=== PATIENT | female | born 1970 | race Caucasian/White ===

== ENCOUNTER 2016-07-07 17:05 | Emergency (ER) ==
[2016-07-07 17:13] VITALS: BMI 21.1
[2016-07-07 17:42] LABS: BILIRUBIN,URINE Negative (NEGATIVE); KETONES,URINE Negative (NEGATIVE); LEUKOCYTE ESTERASE ,URINE 2+ (NEGATIVE); NITRITE,URINE Negative (NEGATIVE); PROTEIN,URINE Negative (NEGATIVE); URINE, BLOOD Trace-intact (NEGATIVE)
[2016-07-07 17:45] LABS: ADD URINE MICROSCOPIC YES
[2016-07-07 17:46] LABS: BACTERIA,URINE 1+ (NOT PRESENT); URINE PREGNANCY INTERNAL QC INTERNAL QC VALID
--- NOTE | 2016-07-07 17:58 | ED.PDOC ---
General ED Provider: Dr. COLLEEN ESPOSITO Chief Complaint: Urinary Problem Stated Complaint: Patient is a 46 year old who states she has lost her voice and has a sore thorat. Time Seen by Physician: 17:50 Mode of Arrival: Walk-In Information Source: Patient Exam Limitations: No limitations Nursing and Triage Documentation Reviewed and Agree: Yes EENT Complaint Exam - Throat Complaint/Exam Symptoms Are: Still present Timimg: Constant Associated Signs and Symptoms: Reports: Fever, Dysphagia, Hoarseness. Denies: Drooling, Foreign body sensation, Chills, Cough, Wheezing, Sinus discomfort, Nasal congestion, Difficulty breathing, Lethargy, Irritability, Decreased activity, Vomiting, Diarrhea, Decreased hearing, Ear drainage Uvula Midline: No Veda-tonsillar Fluctuence: No Scarlatinaform Rash Present: No Stridor Present: No Sinus Tenderness Present: No Tonsillar Hypertrophy Present: Yes Tonsillar Exudate Present: No Veda-tonsillar Swelling Present: No Adenopathy Present: Yes Splenomegaly Present: No Past Medical History - Past Medical History Previously Healthy: Yes Endocrine: Reports: None Cardiovascular: Reports: None Respiratory: Reports: None Hematological: Reports: None Gastrointestinal: Reports: None Genitourinary: Reports: None Neuro/Psych: Reports: None Musculoskeletal: Reports: Arthritis Cancer: Reports: None Last Menstrual Period: january Other Pertinent Past Medical History: Lupus, RA - Surgical History General Surgical History: Reports: Appendectomy, Cholecystectomy - Family History Family History: Reports: Unknown - Social History Smoking Status: Current every day smoker, Heavy tobacco smoker Hx Substance Use: No Alcohol Screening: None Course - Course Orders, Labs, Meds: Lab Review 07/07/16 17:30 Urine Color Yellow Urine Clarity Clear Urine pH 6.0 Ur Specific [place] 1.025 Urine Protein Negative Urine Glucose (UA) Negative Urine Ketones Negative Urine Blood Trace-intact Urine Nitrite Negative Urine Bilirubin Negative Urine Urobilinogen 1.0 Ur Leukocyte Esterase 2+ Urine Microscopic RBC 2-5 Urine Microscopic WBC 10-20 Ur Squamous Epith Cells 2-5 Urine Bacteria 1+ Urine Mucus 1+ Urine Test Negative Orders Category Date Time Status URINALYSIS C & S IF INDICATED Stat LAB 07/07/16 17:30 Completed URINE CULTURE Routine LAB 07/07/16 17:30 Received URINE Stat LAB 07/07/16 17:30 Completed Vital Signs: Temp Pulse Resp BP Pulse Ox 07/07/16 17:05 98.4 F 104 H 20 137/74 96 Departure - Departure Allergies/Adverse Reactions: Allergies codeine Allergy (Severe, Verified 07/07/16 17:12) nausea varenicline tartrate [From Chantix] Allergy (Severe, Verified 07/07/16 17:12) nightmares Pt to notify drugstore Home Medications: Ambulatory Orders 1 [No Reported Medications] 07/07/16
[2016-07-07] MEDS ORDERED: ZITHROMAX PO STA (18:04)
[2016-07-07] MEDS ORDERED: LIDOCAINE 1 % AMP 5 ML (SUTURES) IM STA (18:04)
[2016-07-07] MEDS ORDERED: FLAGYL PO STA (18:04)
[2016-07-07] MEDS ORDERED: ROCEPHIN IM STA (18:04)
--- NOTE | 2016-07-07 18:05 | ED.PDOC ---
General ED Provider: Dr. COLLEEN ESPOSITO Chief Complaint: Urinary Problem Stated Complaint: Patient is a 46 year old who states she has had discharge for one month while she was in shelter. She was not treated. She also complains of Burining on urination. last sexual encounter was one month ago. Time Seen by Physician: 17:45 Mode of Arrival: Walk-In Information Source: Patient Exam Limitations: No limitations Nursing and Triage Documentation Reviewed and Agree: Yes Complaint Exam - UTI Female Complaint/Exam Patient Complains of: Reports: Painful urination Onset/Duration: 1 month Symptoms Are: Still present Timing: Constant Initial Severity: Moderate Current Severity: Severe Location of Pain: Reports: Suprapubic Associated Signs and Symptoms: Reports: Vaginal discharge. Denies: Fever, Chills Patient Rh Status: Unknown Related History: Reports: Similar episode CVA Tenderness: No Suprapubic Tenderness: No Differential Diagnoses: Bladder Dysfunction, Pyelonephritis, STD Review of Systems - Review Of Systems Constitutional: Reports: No symptoms Eyes: Reports: No symptoms Ears, Nose, Mouth, Throat: Reports: No symptoms Respiratory: Reports: No symptoms Cardiac: Reports: No symptoms GI: Reports: No symptoms : Reports: Dysuria, Discharge Musculoskeletal: Reports: No symptoms Skin: Reports: No symptoms Neurological: Reports: Anxiety Endocrine: Reports: No symptoms Hematologic/Lymphatic: Reports: No symptoms All Other Systems: Reviewed and Negative Past Medical History - Past Medical History Previously Healthy: Yes Endocrine: Reports: None Cardiovascular: Reports: None Respiratory: Reports: None Hematological: Reports: None Gastrointestinal: Reports: None Genitourinary: Reports: None Neuro/Psych: Reports: None Musculoskeletal: Reports: Arthritis Cancer: Reports: None Last Menstrual Period: january Other Pertinent Past Medical History: Lupus, RA - Surgical History General Surgical History: Reports: Appendectomy, Cholecystectomy - Family History Family History: Reports: Unknown - Social History Smoking Status: Current every day smoker, Heavy tobacco smoker Hx Substance Use: No Alcohol Screening: None Physical Exam - Physical Exam Appearance: Ill-appearing, Thin Ill-appearing: Mild Pain Distress: Moderate Eyes: ANDREA, EOMI, Conjunctiva clear ENT: Ears normal, Nose normal (Poor dentition with severe dental caries. ) Neck: Supple Respiratory: Airway patent, Breath sounds clear, Breath sounds equal, Respirations nonlabored Cardiovascular: Tachycardia GI/: Soft, Nontender, No masses, No Organomegaly, Bowel sounds hyperactive Musculoskeletal: Normal strength, ROM intact, No edema, No calf tenderness Skin: Warm, Dry, Normal color Neurological: Sensation intact, Motor intact, Reflexes intact, Cranial nerves intact, Alert, Oriented Psychiatric: Anxious Critical Care Note - Critical Care Note Total Time (mins): 0 Course - Course Orders, Labs, Meds: Lab Review 07/07/16 17:30 Urine Color Yellow Urine Clarity Clear Urine pH 6.0 Ur Specific [place] 1.025 Urine Protein Negative Urine Glucose (UA) Negative Urine Ketones Negative Urine Blood Trace-intact Urine Nitrite Negative Urine Bilirubin Negative Urine Urobilinogen 1.0 Ur Leukocyte Esterase 2+ Urine Microscopic RBC 2-5 Urine Microscopic WBC 10-20 Ur Squamous Epith Cells 2-5 Urine Bacteria 1+ Urine Mucus 1+ Urine Test Negative C.trachomatis DNA (TEE) Negative Chlamydia/GC DNA Note N.gonorrhoeae DNA (TEE) Negative Orders Category Date Time Status CHLAMYDIA/GC AMPLIFICATION Stat LAB 07/07/16 17:30 Completed URINALYSIS C & S IF INDICATED Stat LAB 07/07/16 17:30 Completed URINE CULTURE Routine LAB 07/07/16 17:30 Completed URINE Stat LAB 07/07/16 17:30 Completed Azithromycin [Zithromax] MEDS 07/07/16 18:04 Discontinued 1,000 mg PO ONCE STA Ceftriaxone Sodium [Rocephin] MEDS 07/07/16 18:04 Discontinued 1 gm IM ONCE STA Lidocaine HCl/Pf [Lidocaine 1 % Amp 5 ml (Sutures)] MEDS 07/07/16 18:04 Discontinued 2.1 ml IM ONCE STA Metronidazole [Flagyl] MEDS 07/07/16 18:04 Discontinued 500 mg PO ONCE STA Medications Discontinued Medications Generic Name Dose Route Start Last Admin Trade Name Marceloq PRN Reason Stop Dose Admin Azithromycin 1,000 mg 07/07/16 18:04 07/07/16 18:17 Zithromax PO 07/07/16 18:05 1,000 mg ONCE STA Administration Ceftriaxone Sodium 1 gm 07/07/16 18:04 07/07/16 18:16 Rocephin IM 07/07/16 18:05 1 gm ONCE STA Administration Lidocaine HCl 2.1 ml 07/07/16 18:04 07/07/16 18:16 Lidocaine 1 % Amp 5 Ml (Sutures) IM 07/07/16 18:05 2.1 ml ONCE STA Administration Metronidazole 500 mg 07/07/16 18:04 07/07/16 18:17 Flagyl PO 07/07/16 18:05 500 mg ONCE STA Administration Vital Signs: Temp Pulse Resp BP Pulse Ox 07/07/16 18:36 98.1 F 101 H 16 133/91 H 96 07/07/16 17:05 98.4 F 104 H 20 137/74 96 Departure - Departure Time of Disposition: 18:55 Disposition: HOME SELF-CARE Discharge Problem: Urinary tract infectious disease, Vaginitis Instructions: Vaginitis (ED) Condition: Fair Pt referred to PMD for follow-up: Yes Additional Instructions: Take Medications as prescribed Follow up with PCP in 3 day or Go to the Health department Prescriptions: Cephalexin [Keflex] 500 mg PO TID #30 capsule Metronidazole [Flagyl] 500 mg PO TID #30 tablet Allergies/Adverse Reactions: Allergies codeine Allergy (Severe, Verified 07/07/16 17:12) nausea varenicline tartrate [From Chantix] Allergy (Severe, Verified 07/07/16 17:12) nightmares Pt to notify drugstore Home Medications: Ambulatory Orders Cephalexin [Keflex] 500 mg PO TID #30 capsule 07/07/16 Metronidazole [Flagyl] 500 mg PO TID #30 tablet 07/07/16 Disposition Discussed With: Patient, Family
[2016-07-07 18:37] VITALS: BP 133/91; TEMP 98.1
== END 2016-07-07 18:37 | disposition home or self-care (01) ==
LOC: ED 17:05
DX: N39.0 Urinary tract infection, site not specified (principal); N76.0 Acute vaginitis; F17.210 Nicotine dependence, cigarettes, uncomplicated; K02.7 Dental root caries
CPT/HCPCS: 36415; 81001; 81025; 87086; 87186; 87800; 96372; 99282

== ENCOUNTER 2017-01-10 12:25 | Outpatient (CLI) ==
[2017-01-10 13:59] LABS: ESR INTERNAL QC INTERNAL QC VALID
[2017-01-10 14:00] LABS: ERYTHROCYTE SEDIMENTATION RATE 20 mm/hr (0-20)
[2017-01-11 07:18] LABS: C-REACTIVE PROTEIN 0.3 mg/L (0.0-4.9); RHEUMATOID ARTHRITIS FACTOR < 10.0 IU/mL (0.0-13.9)
[2017-01-11 14:22] LABS: ANTI-NUCLEAR ANTIBODY SCREEN Positive (Negative)
[2017-01-11 17:15] LABS: BASOPHILS % (AUTO) 0.9 % (0.0-3.0); EOSINOPHILS # (AUTO) 0.1 K/ul (0.0-0.7); EOSINOPHILS % (AUTO) 1.1 % (0.0-7.0); HEMATOCRIT 48.3 % (37.0-47.0); HEMOGLOBIN 16.1 g/dl (12.0-16.0); IMMATURE GRANULOCYTE % (AUTO) 0.2 % (0.0-5.0); LYMPHOCYTES # (AUTO) 1.7 K/uL (0.60-3.4); LYMPHOCYTES % (AUTO) 38.4 (10.0-50.0); MEAN CORPUSCULAR HEMOGLOBIN 30.7 pg (27.0-31.0); MEAN CORPUSCULAR HGB CONC 33.3 (31.8-35.4); MONOCYTES # (AUTO) 0.8 K/uL (0.4-2.0); MONOCYTES % (AUTO) 17.1 (0-10); NEUTROPHILS # (AUTO) 1.9 K/ul (2.0-6.9); NEUTROPHILS % (AUTO) 42.3; PLATELET COUNT 296 10^3/uL (140-440); RED BLOOD COUNT 5.25 10^6/ul (4.20-5.40); WHITE BLOOD COUNT 4.38 K/ul (4.6-10.2)
== END 2017-01-10 12:26 | disposition home or self-care (01) ==
LOC: LAB 12:25
PROVIDERS: ATTEND Nurse Practitioner Family
DX: M25.50 Pain in unspecified joint (principal); Z00.00 Encounter for general adult medical examination without abnormal findings; R20.0 Anesthesia of skin; M79.601 Pain in right arm
CPT/HCPCS: 36415; 85025; 85651; 86038; 86140; 86430

== ENCOUNTER 2018-07-01 15:20 | Emergency (ER) ==
[2018-07-01 15:27] VITALS: BMI 17.7
--- NOTE | 2018-07-01 17:10 | ED.PDOC ---
General ED Provider: Dr. DONTAE MUHAMMAD Chief Complaint: Nausea/Vomiting Stated Complaint: Feels very poorly, generalized aching, facial swelling up , abdominal cramping. Hx of lupus, not treated as a result of losing her specialist and no PCP. Flu symptoms. Time Seen by Physician: 15:45 Mode of Arrival: Walk-In Information Source: Patient Exam Limitations: Clinical condition Nursing and Triage Documentation Reviewed and Agree: Yes Does patient meet sepsis criteria?: No System Inflammatory Response Syndrome: Not Applicable Sepsis Protocol: For patient's 13 years and over: Temp is 96.8 and below OR 101 and greater Pulse >90 BPM Resp >20/minute Acutely Altered Mental Status Are patient's symptoms suggestive of a new infection, such as: -Pneumonia -Skin, Soft Tissue -Endocarditis -UTI -Bone, Joint Infection -Implantable Device -Acute Abdominal Infection -Wound Infection -Meningitis -Blood Stream Catheter Infection -Unknown Respiratory Complaint Exam - Respiratory Complaint/Exam Symptoms Are: Still present Timing: Intermittent Initial Severity: Moderate Current Severity: Mild Location: Throat, Chest Character: Reports: Non-productive cough, Dry cough Aggravating: Reports: URI, Recumbent position Alleviating: Reports: OTC Meds Associated Signs and Symptoms: Reports: Pleuritic chest pain, Nasal congestion, Hoarseness, Sore throat Related History: Reports: Similar episode Related Surgical History: Reports: None Pulmonary Embolism Risk Factors: None Cardiac Risk Factors: Reports: Smoking, Elevated lipids Pseudomonas Risk Factors: Reports: None Tuberculosis Risk Factors: Reports: Communal living, Drug addiction, Smoking Status Asthmaticus Risk Factors: Reports: None Home Oxygen Use: No Recent Stress Test: No Recent Echo/LV Function: No Current Antibiotic Use: No Current Asthma Medication Use: No Respiratory Distress: None Inadequate Respiratory Effort: No Dysphagia Present: No Stridor Present: No JVD Present: No Accessory Muscle Use: No Retractions: Not Present Diminished Breath Sounds: No Sinus Tenderness: None Grunting Respirations: No Kussmaul Respirations: No Differential Diagnoses: URI, Influenza Review of Systems - Review Of Systems Constitutional: Reports: Malaise, Weakness Eyes: Reports: No symptoms Ears, Nose, Mouth, Throat: Reports: No symptoms Respiratory: Reports: Cough, Wheezing Cardiac: Reports: No symptoms GI: Reports: Abdomen distended, Poor appetite, Poor fluid intake : Reports: No symptoms Musculoskeletal: Reports: Back pain, Joint pain, Joint swelling Skin: Reports: No symptoms Neurological: Reports: No symptoms Endocrine: Reports: No symptoms Hematologic/Lymphatic: Reports: No symptoms All Other Systems: Reviewed and Negative Past Medical History - Past Medical History Previously Healthy: Yes Endocrine: Reports: None Cardiovascular: Reports: None Respiratory: Reports: None Hematological: Reports: None Gastrointestinal: Reports: None Genitourinary: Reports: None Neuro/Psych: Reports: None Musculoskeletal: Reports: Arthritis Cancer: Reports: None Last Menstrual Period: menopause Other Pertinent Past Medical History: Lupus, RA - Surgical History General Surgical History: Reports: Appendectomy, Cholecystectomy - Family History Family History: Reports: Unknown - Social History Smoking Status: Current every day smoker, Heavy tobacco smoker Hx Substance Use: No Alcohol Screening: Occasionally Physical Exam - Physical Exam Appearance: Ill-appearing, Thin Ill-appearing: Moderate Pain Distress: Mild Eyes: ANDREA, EOMI, Conjunctiva clear ENT: Ears normal, Nose normal, Oropharynx normal Neck: Supple Respiratory: Airway patent, Breath sounds clear, Breath sounds equal, Respirations nonlabored Cardiovascular: RRR, Pulses normal, No rub, No murmur GI/: Soft, Nontender (no guarding or rebound), No masses, Bowel sounds normal , No Organomegaly, Tender Musculoskeletal: Normal strength, ROM intact, No edema, No calf tenderness Skin: Warm, Dry, Normal color Neurological: Sensation intact, Motor intact, Reflexes intact, Cranial nerves intact, Alert, Oriented Psychiatric: Affect appropriate (Flat affect), Anxious Interpretation - Radiology Interpretation Radiology Interpretation By: Radiologist Exam Interpreted: CXR, CT Scan (pelvic fluid/no masses) Xray Comments: Cardiac enlargement Physician Notification - Case Discussed Physician Notified: [facility] Time of Notification: 19:15 Critical Care Note - Critical Care Note Total Time (mins): 120 Course - Course Hematology/Chemistry: 07/01/18 17:15 07/01/18 17:15 Orders, Labs, Meds: Lab Review 07/01/18 07/01/18 07/01/18 16:21 16:29 17:10 WBC RBC Hgb Hct MCV MCH MCHC RDW Coeff of [place] Plt Count Immature Gran % (Auto) Neut % (Auto) Lymph % (Auto) [place] % (Auto) Eos % (Auto) Baso % (Auto) Immature Gran # (Auto) Neut # (Auto) Lymph # (Auto) [place] # (Auto) Eos # (Auto) Baso # (Auto) D-Dimer (Manual) Sodium Potassium Chloride Carbon Dioxide Anion Gap BUN Creatinine Estimated GFR (MDRD) BUN/Creatinine Ratio Glucose Lactic Acid Calcium Total Bilirubin AST ALT Alkaline Phosphatase Total Protein Albumin Globulin Albumin/Globulin Ratio Amylase Lipase TSH Free T4 1.49 Urine Color Yellow Urine Clarity Clear Urine pH 5.5 Ur Specific [place] 1.015 Urine Protein 2+ Urine Glucose (UA) Negative Urine Ketones Negative Urine Blood 3+ Urine Nitrite Negative Urine Bilirubin Negative Urine Urobilinogen 0.2 Ur Leukocyte Esterase Trace Urine Microscopic RBC 50-100 Ur Squamous Epith Cells Not present Urine Opiates Screen Negative Ur Oxycodone Screen Negative Urine Methadone Screen Negative Ur Propoxyphene Screen Negative Ur Barbiturates Screen Negative U Tricyclic Antidepress Negative Ur Phencyclidine Scrn Negative Ur Amphetamine Screen Positive U Methamphetamines Scrn Positive U Benzodiazepines Scrn Negative Urine Cocaine Screen Negative U Cannabinoids Screen Negative 07/01/18 07/01/18 07/01/18 17:15 17:15 17:15 WBC 9.49 RBC 4.04 L Hgb 11.6 L Hct 35.6 L MCV 88.1 MCH 28.7 MCHC 32.6 RDW Coeff of [place] 17.0 H Plt Count 139 L Immature Gran % (Auto) 0.9 Neut % (Auto) 56.2 Lymph % (Auto) 32.0 [place] % (Auto) 8.5 Eos % (Auto) 1.9 Baso % (Auto) 0.5 Immature Gran # (Auto) 0.1 Neut # (Auto) 5.3 Lymph # (Auto) 3.0 [place] # (Auto) 0.8 Eos # (Auto) 0.2 Baso # (Auto) 0.1 D-Dimer (Manual) 4547.74 Sodium 140.7 Potassium 5.27 H Chloride 110.8 H Carbon Dioxide 21.6 L Anion Gap 13.57 BUN 68.2 H* Creatinine 3.97 H* Estimated GFR (MDRD) 12.00 BUN/Creatinine Ratio 17.17 Glucose 94.0 Lactic Acid Calcium 8.57 Total Bilirubin 0.34 AST 29.6 ALT 13.5 Alkaline Phosphatase 106.4 Total Protein 6.78 Albumin 2.91 L Globulin 3.87 Albumin/Globulin Ratio 0.75 Amylase 58.3 Lipase 160.0 TSH < 0.015 L Free T4 Urine Color Urine Clarity Urine pH Ur Specific [place] Urine Protein Urine Glucose (UA) Urine Ketones Urine Blood Urine Nitrite Urine Bilirubin Urine Urobilinogen Ur Leukocyte Esterase Urine Microscopic RBC Ur Squamous Epith Cells Urine Opiates Screen Ur Oxycodone Screen Urine Methadone Screen Ur Propoxyphene Screen Ur Barbiturates Screen U Tricyclic Antidepress Ur Phencyclidine Scrn Ur Amphetamine Screen U Methamphetamines Scrn U Benzodiazepines Scrn Urine Cocaine Screen U Cannabinoids Screen 07/01/18 17:15 WBC RBC Hgb Hct MCV MCH MCHC RDW Coeff of [place] Plt Count Immature Gran % (Auto) Neut % (Auto) Lymph % (Auto) [place] % (Auto) Eos % (Auto) Baso % (Auto) Immature Gran # (Auto) Neut # (Auto) Lymph # (Auto) [place] # (Auto) Eos # (Auto) Baso # (Auto) D-Dimer (Manual) Sodium Potassium Chloride Carbon Dioxide Anion Gap BUN Creatinine Estimated GFR (MDRD) BUN/Creatinine Ratio Glucose Lactic Acid 0.66 L Calcium Total Bilirubin AST ALT Alkaline Phosphatase Total Protein Albumin Globulin Albumin/Globulin Ratio Amylase Lipase TSH Free T4 Urine Color Urine Clarity Urine pH Ur Specific [place] Urine Protein Urine Glucose (UA) Urine Ketones Urine Blood Urine Nitrite Urine Bilirubin Urine Urobilinogen Ur Leukocyte Esterase Urine Microscopic RBC Ur Squamous Epith Cells Urine Opiates Screen Ur Oxycodone Screen Urine Methadone Screen Ur Propoxyphene Screen Ur Barbiturates Screen U Tricyclic Antidepress Ur Phencyclidine Scrn Ur Amphetamine Screen U Methamphetamines Scrn U Benzodiazepines Scrn Urine Cocaine Screen U Cannabinoids Screen Orders Category Date Time Status IV [ED IV/MEDIPORT/POWERPORT] .ONCE EMERGENCY 07/01/18 17:01 Active AMYLASE Stat LAB 07/01/18 17:15 Completed BLOOD CULTURE Stat LAB 07/01/18 17:20 Received CBC W/ AUTO DIFF Stat LAB 07/01/18 17:15 Completed CMP [COMPREHENSIVE METABOLIC PANEL] Stat LAB 07/01/18 17:15 Completed D-DIMER Stat LAB 07/01/18 17:15 Completed FREE T4 (FREE THYROXINE) Stat LAB 07/01/18 17:10 Completed LACTIC ACID Stat LAB 07/01/18 17:15 Completed LIPASE Stat LAB 07/01/18 17:15 Completed RAPID STREP SCREEN [MOLECULAR GROUP A STREP] Stat LAB 07/01/18 17:08 Completed THYROID STIMULATING HORMONE Stat LAB 07/01/18 17:15 Completed URINALYSIS C & S IF INDICATED Stat LAB 07/01/18 16:29 Completed URINE DRUG SCREEN (RAPID FOR ED) [DRUG SCREEN, URINE, LAB 07/01/18 16:21 Completed RAPID] Stat 0.9 % Sodium Chloride [Saline Flush] MEDS 07/01/18 17:01 Ordered 1 syr IVF PRN PRN CHEST, 2 VIEWS PA & LAT Stat RADS 07/01/18 17:[address] ABDOMEN/PELVIS WO CONTRAST Stat RADS 07/01/18 17:03 Completed Medications Generic Name Dose Route Start Last Admin Trade Name Freq PRN Reason Stop Dose Admin Sodium Chloride 1 syr 07/01/18 17:01 Saline Flush IVF PRN PRN To flush IV Vital Signs: Temp Pulse Resp BP Pulse Ox 07/01/18 15:20 99.2 F 103 H 20 135/80 92 L Departure - Departure Time of Disposition: 19:15 Disposition: TSF SHORT-TRM HOSP Discharge Problem: Acute kidney injury superimposed on chronic kidney disease, Lupus (systemic lupus erythematosus) Condition: Serious Pt referred to PMD for follow-up: No (no pcp) IPMP verified?: No (unable to sign on ) Additional Instructions: Discussed case with patient and her mother /Recommendation and options discussed Req transfer to [facility] Allergies/Adverse Reactions: Allergies codeine Allergy (Severe, Verified 07/01/18 15:29) nausea varenicline tartrate [From Chantix] Allergy (Severe, Verified 07/01/18 15:29) nightmares Pt to notify drugstore Home Medications: Ambulatory Orders 1 [No Reported Medications] 07/01/18 Transfer Form Completed: Yes Disposition Discussed With: Patient, Family
--- NOTE | 2018-07-01 18:19 | DI ---
Exam: Two-view chest x-ray. Date: 07/01/2018. Comparison: 10/14/2014. HISTORY: Cough and congestion. FINDINGS: The osseous structures are normal. The lungs are clear. The cardiac silhouette has enlar ged in the interval. Pulmonary vasculature is normal. Impression: No acute intrathoracic findings. However there has been enlargement of the cardiac silh ouette when compared with 10/14/2014. If further evaluation is needed then echocardiography could be performed.
--- NOTE | 2018-07-01 18:23 | CT ---
EXAM: The CT scan abdomen pelvis without contrast HISTORY: Abdominal pain COMPARISON: CT scan abdomen pelvis 10/14/2014 FINDINGS: Contiguous axial images were obtained through the abdomen and pelvis without contrast util izing 3-mm collimation., . Sagittal and coronal reveals origins were imaged and reviewed.. The visu alized lung bases are clear.. The heart is top normal in size with small pericardial effusion measuri ng 10 mm. There has been prior cholecystectomy. Benign granulomatous changes are seen within the sp leon. There is a punctate nonobstructive calculus within the left kidney. The right kidney is unre markable. Atherosclerotic changes are seen involving the aorta without aneurysm formation.. Free fl uid is seen in the pelvis. The bladder is unremarkable. The appendix was not visualized.. Bone win dows reveals no evidence of lytic or blastic lesions.. There is mild anasarca. IMPRESSION: Nonobstructive left-sided nephrolithiasis. ASVD without aneurysm. Prior cholecystectomy. Prominent cardiac silhouette with small pericardial effusion. Free fluid in the dependent pelvis
[2018-07-01] MEDS ORDERED: ZOFRAN 4 MG/2 ML IVP STA (19:01)
[2018-07-01 19:42] VITALS: BP 141/86; TEMP 98.2
== END 2018-07-01 20:14 | disposition short-term general hospital (02) ==
LOC: ED 15:20
DX: N17.9 Acute kidney failure, unspecified (principal); N18.9 Chronic kidney disease, unspecified; G89.29 Other chronic pain; M32.9 Systemic lupus erythematosus, unspecified; E78.5 Hyperlipidemia, unspecified; F17.210 Nicotine dependence, cigarettes, uncomplicated
CPT/HCPCS: 36415; 80053; 80306; 81001; 82150; 83605; 83690; 84439; 84443; 85025; 85379; 87040; 87651; 96375; 99285

== ENCOUNTER 2018-07-01 20:08 | Outpatient (CLI) ==
[2018-07-01 15:27] VITALS: BMI 17.7
== END 2018-07-01 20:31 | disposition short-term general hospital (02) ==
LOC: AMBL 20:08
PROVIDERS: ATTEND Family Medicine
DX: N19 Unspecified kidney failure (principal); R53.1 Weakness

== ENCOUNTER 2018-07-18 17:47 | Outpatient (CLI) | END 2018-07-18 18:08 | disposition short-term general hospital (02) | LOC: AMBL 17:47 | PROVIDERS: ATTEND Emergency Medicine | DX: R06.02 Shortness of breath (principal); R60.1 Generalized edema; R19.00 Intra-abdominal and pelvic swelling, mass and lump, unspecified site; R00.0 Tachycardia, unspecified ==

== ENCOUNTER 2018-07-26 14:42 | Outpatient (CLI) | END 2018-07-26 14:43 | disposition home or self-care (01) | LOC: LAB 14:42 | PROVIDERS: ATTEND Nurse Practitioner Family | DX: N18.9 Chronic kidney disease, unspecified (principal); D63.1 Anemia in chronic kidney disease | CPT/HCPCS: 36415; 85014; 85018 ==

== ENCOUNTER 2018-07-29 15:53 | Outpatient (CLI) ==
[2018-07-29] MEDS ORDERED: TYLENOL PO STA (16:28)
[2018-07-29] MEDS ORDERED: SOLU-CORTEF 100 MG IVP STA (16:28)
[2018-07-29] MEDS ORDERED: BENADRYL 25 MG in SODIUM CHLORIDE 100 ML IV STA (16:28)
[2018-07-29] MEDS ORDERED: BENADRYL IVP STA (17:07)
[2018-07-29 23:47] VITALS: BP 160/86; TEMP 97.9
== END 2018-07-29 15:54 | disposition home or self-care (01) ==
LOC: LAB 15:53 → OPMED 15:54
PROVIDERS: ATTEND Nurse Practitioner Family
DX: N18.9 Chronic kidney disease, unspecified (principal); D63.1 Anemia in chronic kidney disease
CPT/HCPCS: 36415; 36430; 85014; 85018; 86850; 86900; 86922

== ENCOUNTER 2018-10-23 02:46 | Emergency (ER) ==
[2018-10-23 03:00] VITALS: TEMP 99; BMI 17.2
[2018-10-23] MEDS ORDERED: SOLU-MEDROL 125 MG IM STA (03:28)
[2018-10-23] MEDS ORDERED: EPINEPHRINE 1 MG/ML AMP IM STA (03:28)
--- NOTE | 2018-10-23 03:29 | ED.PDOC ---
General ED Provider: Dr. COLLEEN ESPOSITO Chief Complaint: Rash Stated Complaint: urticarial rash that started tonight took 2 benadryl with no improvment. denies any recent changes/new medications, detergents, lotions or foods. Denies exposure to plants. States rash is all over. Time Seen by Physician: 03:15 Mode of Arrival: Walk-In Information Source: Patient Primary Care Provider: JARED SU Nursing and Triage Documentation Reviewed and Agree: Yes Does patient meet sepsis criteria?: No System Inflammatory Response Syndrome: Not Applicable Sepsis Protocol: For patient's 13 years and over: Temp is 96.8 and below OR 101 and greater Pulse >90 BPM Resp >20/minute Acutely Altered Mental Status Are patient's symptoms suggestive of a new infection, such as: -Pneumonia -Skin, Soft Tissue -Endocarditis -UTI -Bone, Joint Infection -Implantable Device -Acute Abdominal Infection -Wound Infection -Meningitis -Blood Stream Catheter Infection -Unknown Skin Complaint Exam - Skin Rash/Itching Complaint/Exam Onset/Duration: 1 day Symptoms Are: Still present Initial Severity: Moderate Current Severity: Severe Location: diffuse Potential Exposures: Reports: Unknown Prior Treatment: Benadryl 2 tabs Aggravating: Reports: None Alleviating: Reports: None Associated Signs and Symptoms: Denies: Difficulty breathing, Fever, Chills Related History: Similar episode (poison sarita) Skin Findings: Present: Urticaria Differential Diagnoses: Allergic Reaction, Urticaria Review of Systems - Review Of Systems Constitutional: Reports: No symptoms Eyes: Reports: No symptoms Ears, Nose, Mouth, Throat: Reports: No symptoms Respiratory: Reports: No symptoms Cardiac: Reports: No symptoms GI: Reports: No symptoms : Reports: No symptoms Musculoskeletal: Reports: No symptoms Skin: Reports: Rash Neurological: Reports: Anxiety Endocrine: Reports: No symptoms Hematologic/Lymphatic: Reports: No symptoms All Other Systems: Reviewed and Negative Past Medical History - Past Medical History Previously Healthy: Yes Endocrine: Reports: Hypothyroid Cardiovascular: Reports: Hypertension, CHF Respiratory: Reports: COPD Hematological: Reports: None Gastrointestinal: Reports: None Genitourinary: Reports: CKD Neuro/Psych: Reports: None Musculoskeletal: Reports: Arthritis Cancer: Reports: None Last Menstrual Period: UNKNOWN Other Pertinent Past Medical History: Lupus, RA - Surgical History General Surgical History: Reports: Appendectomy, Cholecystectomy, Other (shunt to the right chest for dialysis.) - Family History Family History: Reports: Unknown - Social History Smoking Status: Current every day smoker, Light tobacco smoker Hx Substance Use: Yes (SUBSTANCE IN THE PAST) Alcohol Screening: None - Immunizations Tetanus Shot up to Date: (UNKNOWN) Physical Exam - Physical Exam Appearance: Ill-appearing, Thin Ill-appearing: Moderate Eyes: ANDREA Respiratory: Airway patent, Breath sounds clear, Breath sounds equal, Respirations nonlabored Cardiovascular: RRR, Pulses normal, No rub, No murmur Skin: Warm, Dry Neurological: Sensation intact, Motor intact, Cranial nerves intact, Alert, Oriented Psychiatric: Anxious Critical Care Note - Critical Care Note Total Time (mins): 0 Course - Course Orders, Labs, Meds: Orders Category Date Time Status Epinephrine Amp [Epinephrine 1 mg/ml Amp] MEDS 10/23/18 03:28 Discontinued 0.3 mg IM ONCE STA Methylprednisolone Sod Succ/Pf [Solu-Medrol 125 mg] MEDS 10/23/18 03:28 Discontinued 125 mg IM ONCE STA Medications Discontinued Medications Generic Name Dose Route Start Last Admin Trade Name Nicolas WALLSN Reason Stop Dose Admin Epinephrine HCl 0.3 mg 10/23/18 03:28 10/23/18 03:40 Epinephrine 1 Mg/Ml Amp IM 10/23/18 03:29 0.3 mg ONCE STA Administration Methylprednisolone Sodium Succinate 125 mg 10/23/18 03:28 10/23/18 03:41 Solu-Medrol 125 Mg IM 10/23/18 03:29 125 mg ONCE STA Administration Vital Signs: Temp Pulse Resp BP Pulse Ox 10/23/18 04:05 162/92 H 10/23/18 02:46 99 F 106 H 18 157/101 H 95 Departure - Departure Time of Disposition: 04:00 Disposition: HOME SELF-CARE Discharge Problem: Urticaria Instructions: Urticaria (ED) Condition: Stable Pt referred to PMD for follow-up: Yes IPMP verified?: No Additional Instructions: Take Medications as prescribed Follow up with PCP in three day. continue home benadryl Prescriptions: Prednisone 20 mg PO DAILYWM #5 tablet Allergies/Adverse Reactions: Allergies codeine Allergy (Severe, Verified 10/23/18 03:00) nausea varenicline tartrate [From Chantix] Allergy (Severe, Verified 10/23/18 03:00) nightmares Pt to notify drugstore Home Medications: Ambulatory Orders Prednisone 20 mg PO DAILYWM #5 tablet 10/23/18 Disposition Discussed With: Patient
[2018-10-23 04:05] VITALS: BP 162/92
== END 2018-10-23 04:05 | disposition home or self-care (01) ==
LOC: ED 02:46
DX: L50.9 Urticaria, unspecified (principal); F17.210 Nicotine dependence, cigarettes, uncomplicated
CPT/HCPCS: 96372; 99283

== ENCOUNTER 2018-11-02 20:43 | Emergency (ER) ==
[2018-11-02 20:44] VITALS: BMI 17.2
[2018-11-02 20:49] VITALS: BP 159/91; TEMP 99.2
[2018-11-02] MEDS ORDERED: ROCEPHIN IM STA (20:54)
[2018-11-02] MEDS ORDERED: DUONEB NEB STA (20:54)
[2018-11-02] MEDS ORDERED: SOLU-MEDROL 125 MG IM STA (20:54)
[2018-11-02] MEDS ORDERED: XOPENEX 1.25 MG NEB STA (20:54)
[2018-11-02] MEDS ORDERED: ALBUTEROL 0.042% NEB NEB STA (20:55)
[2018-11-02] MEDS ORDERED: SOLU-MEDROL 125 MG IVP STA (21:00)
[2018-11-02] MEDS ORDERED: ROCEPHIN 1 GM PREMIX 1 GM in PREMIX 50 ML D5W 1 BAG IV STA (21:00)
[2018-11-02] MEDS ORDERED: ROCEPHIN 1 GM PREMIX 50 ML IV ONE (21:04)
--- NOTE | 2018-11-02 22:13 | DI ---
Exam: Two views of the chest. Comparison: 07/01/2018. Reason for exam: Cough and dyspnea. FINDINGS: Parenchymal changes are seen consistent with chronic lung disease. Similar appearing prom inence of the cardiac silhouette. Similar appearing blunting of the costophrenic angles. Right-side d central venous catheter is seen without evidence of pneumothorax with the tip in the superior vena cava. Impression: No acute cardiopulmonary process in the setting of chronic lung disease. Persistent cardiomegaly. Interval placement of a right-sided central venous catheter without evidence of pneumothorax
--- NOTE | 2018-11-02 22:55 | ED.PDOC ---
General ED Provider: Dr. DONTAE MONROY-ER Chief Complaint: Shortness of Air Stated Complaint: i have copd and i have sob over 2 days Time Seen by Physician: 20:45 Mode of Arrival: Walk-In Information Source: Patient, Family Exam Limitations: No limitations Primary Care Provider: JARED SU Nursing and Triage Documentation Reviewed and Agree: Yes Does patient meet sepsis criteria?: No System Inflammatory Response Syndrome: Not Applicable Sepsis Protocol: For patient's 13 years and over: Temp is 96.8 and below OR 101 and greater Pulse >90 BPM Resp >20/minute Acutely Altered Mental Status Are patient's symptoms suggestive of a new infection, such as: -Pneumonia -Skin, Soft Tissue -Endocarditis -UTI -Bone, Joint Infection -Implantable Device -Acute Abdominal Infection -Wound Infection -Meningitis -Blood Stream Catheter Infection -Unknown Respiratory Complaint Exam - Respiratory Complaint/Exam Onset/Duration: 2 days Symptoms Are: Still present Timing: Constant Initial Severity: Mild Current Severity: Mild Location: Chest Character: Reports: Productive cough Aggravating: Reports: URI Alleviating: Reports: Bronchodilators Associated Signs and Symptoms: Reports: Wheezing, URI. Denies: Rapid breathing , Dyspnea, Fever, Chills, Chest pain, Pleuritic chest pain, Hemoptysis, Dizziness, Calf pain, Calf swelling, Edema Status Asthmaticus Risk Factors: Reports: None Home Oxygen Use: No Recent Stress Test: No Recent Echo/LV Function: No Current Antibiotic Use: No Current Asthma Medication Use: No Respiratory Distress: None Inadequate Respiratory Effort: No Dysphagia Present: No Stridor Present: No JVD Present: No Accessory Muscle Use: No Retractions: Not Present Diminished Breath Sounds: No Prolonged Respiration: Expiratory phase Sinus Tenderness: None Grunting Respirations: No Kussmaul Respirations: No Differential Diagnoses: COPD Exacerbation Review of Systems - Review Of Systems Constitutional: Reports: No symptoms Eyes: Reports: No symptoms Ears, Nose, Mouth, Throat: Reports: No symptoms Respiratory: Reports: Cough, Short of air, Wheezing Cardiac: Reports: No symptoms GI: Reports: No symptoms : Reports: No symptoms Musculoskeletal: Reports: No symptoms Skin: Reports: No symptoms Neurological: Reports: No symptoms Endocrine: Reports: No symptoms Hematologic/Lymphatic: Reports: No symptoms All Other Systems: Reviewed and Negative Past Medical History - Past Medical History Previously Healthy: Yes Endocrine: Reports: Hypothyroid Cardiovascular: Reports: Hypertension, CHF Respiratory: Reports: COPD Hematological: Reports: None Gastrointestinal: Reports: None Genitourinary: Reports: CKD Neuro/Psych: Reports: None Musculoskeletal: Reports: Arthritis Cancer: Reports: None Last Menstrual Period: menopausal at 44 y/o Other Pertinent Past Medical History: Lupus, RA - Surgical History General Surgical History: Reports: Appendectomy, Cholecystectomy, Other (shunt to the right chest for dialysis.) - Family History Family History: Reports: Unknown - Social History Smoking Status: Current every day smoker, Light tobacco smoker Hx Substance Use: Yes (SUBSTANCE IN THE PAST) Alcohol Screening: None - Immunizations Tetanus Shot up to Date: No (unsure) Physical Exam - Physical Exam Appearance: Well-appearing, No pain distress, Well-nourished Eyes: ANDREA, EOMI, Conjunctiva clear ENT: Ears normal, Nose normal, Oropharynx normal Neck: Supple Respiratory: Wheezes Cardiovascular: RRR, Pulses normal, No rub, No murmur GI/: Soft, Nontender, No masses, Bowel sounds normal, No Organomegaly Musculoskeletal: Normal strength, ROM intact, No edema, No calf tenderness Skin: Warm, Dry, Normal color Neurological: Sensation intact Psychiatric: Affect appropriate, Mood appropriate Interpretation - Radiology Interpretation Radiology Interpretation By: Radiologist Radiology Results: Negative Exam Interpreted: CXR - EKG Interpretation Time of EKG #1: 22:55 Rate: Tachy Rhythm: Sinus Ectopy: None [place]: NL ST Segment: Normal Interpretation: nsr Critical Care Note - Critical Care Note Total Time (mins): 0 Course - Course Hematology/Chemistry: 11/02/18 21:00 11/02/18 21:00 Orders, Labs, Meds: Lab Review 11/02/18 11/02/18 11/02/18 20:53 21:00 21:00 WBC 10.95 H RBC 3.22 L Hgb 10.0 L Hct 30.9 L MCV 96.0 MCH 31.1 H MCHC 32.4 RDW Coeff of Glenny 14.4 Plt Count 195 Immature Gran % (Auto) 1.6 Neut % (Auto) 69.1 Lymph % (Auto) 20.5 Story % (Auto) 5.8 Eos % (Auto) 2.5 Baso % (Auto) 0.5 Immature Gran # (Auto) 0.2 Neut # (Auto) 7.6 H Lymph # (Auto) 2.2 Story # (Auto) 0.6 Eos # (Auto) 0.3 Baso # (Auto) 0.1 Puncture Site Lbrach O2 Saturation 95.0 ABG pH 7.408 ABG pCO2 35.5 ABG pO2 73.0 L ABG HCO3 22.4 ABG Total CO2 23 ABG Base Excess -2 Wilson Test + FiO2 % 21.0 Sodium 140.9 Potassium 3.86 Chloride 104.0 Carbon Dioxide 25.6 Anion Gap 15.16 BUN 33.3 H Creatinine 2.09 H Estimated GFR (MDRD) 25.00 BUN/Creatinine Ratio 15.93 Glucose 105.3 Calcium 8.39 L Total Bilirubin 0.24 AST 37.8 H ALT 14.6 Alkaline Phosphatase 115.5 Total Protein 6.87 Albumin 3.43 L Globulin 3.44 Albumin/Globulin Ratio 0.99 Orders Category Date Time Status ABG DRAW REQUEST Stat CARDIO 11/02/18 20:53 Completed EKG-(ED ONLY) Stat CARDIO 11/02/18 20:53 Completed NEBULIZER TREATMENT Stat CARDIO 11/02/18 20:54 Completed ED ANIMAL SERVICES OFFICER APPLIED .ONCE EMERGENCY 11/02/18 20:53 Active IV [ED IV/MEDIPORT/POWERPORT] .ONCE EMERGENCY 11/02/18 21:15 Active ABG Stat LAB 11/02/18 20:53 Completed CBC W/ AUTO DIFF Stat LAB 11/02/18 21:00 Completed COMPREHENSIVE METABOLIC PANEL Stat LAB 11/02/18 21:00 Completed 0.9 % Sodium Chloride [Saline Flush] MEDS 11/02/18 21:15 Ordered 1 syr IVF PRN PRN Albuterol Sulfate 0.042% Neb [Albuterol 0.042% Neb] MEDS 11/02/18 20:55 Discontinued 1 vial NEB ONCE STA Ceftriaxone/Dextrose,Iso Osm [Rocephin 1 gm Premix] 1 MEDS 11/02/18 21:00 Discontinued gm Premix 50 ml D5w 1 bag IV ONCE Ceftriaxone/Dextrose,Iso Osm [Rocephin 1 gm Premix] 50 MEDS 11/02/18 21:04 Discontinued ml IV .STK-MED Ipratropium/Albuterol Neb [Duoneb] MEDS 11/02/18 20:54 Discontinued 1 vial NEB ONCE STA Levalbuterol HCl [Xopenex 1.25 mg] MEDS 11/02/18 20:54 Discontinued 1 vial NEB ONCE STA Methylprednisolone Sod Succ/Pf [Solu-Medrol 125 mg] MEDS 11/02/18 21:00 Discontinued 125 mg IVP ONCE STA CXR [CHEST, 2 VIEWS PA & LAT] Stat RADS 11/02/18 20:55 Completed Medications Generic Name Dose Route Start Last Admin Trade Name Freq PRN Reason Stop Dose Admin Sodium Chloride 1 syr 11/02/18 21:15 Saline Flush IVF PRN PRN To flush IV Discontinued Medications Generic Name Dose Route Start Last Admin Trade Name Freq PRN Reason Stop Dose Admin Albuterol Sulfate 1 vial 11/02/18 20:55 Albuterol 0.042% Neb NEB 11/02/18 20:56 ONCE STA Albuterol/Ipratropium 1 vial 11/02/18 20:54 11/02/18 21:15 Duoneb NEB 11/02/18 20:55 1 vial ONCE STA Administration CEFTRIAXONE/DEXTROSE,ISO OSM 1 50 mls @ 75 mls/hr 11/02/18 21:00 11/02/18 21: 07 gm/ Dextrose IV 11/02/18 21:39 75 mls/hr ONCE STA Administration Levalbuterol HCl 1 vial 11/02/18 20:54 11/02/18 21:05 Xopenex 1.25 Mg NEB 11/02/18 20:55 1 vial ONCE STA Administration Methylprednisolone Sodium Succinate 125 mg 11/02/18 21:00 11/02/18 21:08 Solu-Medrol 125 Mg IVP 11/02/18 21:01 125 mg ONCE STA Administration Vital Signs: Temp Pulse Resp BP Pulse Ox 11/02/18 20:44 99.2 F 111 H 20 159/91 H 92 L Departure - Departure Time of Disposition: 22:56 Disposition: DISCH W/I HOSP TO [facility] Discharge Problem: COPD exacerbation Acute respiratory failure Qualifiers: Respiratory failure complication: hypoxia Qualified Code(s): J96.01 - Acute respiratory failure with hypoxia Instructions: COPD (Chronic Obstructive Pulmonary Disease) (ED) Condition: Good Pt referred to PMD for follow-up: Yes IPMP verified?: No Allergies/Adverse Reactions: Allergies codeine Allergy (Severe, Verified 11/02/18 20:48) nausea varenicline tartrate [From Chantix] Allergy (Severe, Verified 11/02/18 20:48) nightmares Pt to notify drugstore Home Medications: Ambulatory Orders Bumetanide 0.5 mg PO BID 11/02/18 Cholecalciferol (Vitamin D3) [Vitamin D3] 1,000 unit PO DAILY 11/02/18 Hydralazine HCl 10 mg PO Q8H 11/02/18 Transfer Form Completed: Yes Disposition Discussed With: Patient, Family
== END 2018-11-02 23:54 | disposition swing bed (61) ==
LOC: ED 20:43
DX: J44.1 Chronic obstructive pulmonary disease with (acute) exacerbation (principal); J96.01 Acute respiratory failure with hypoxia; I10 Essential (primary) hypertension; E03.9 Hypothyroidism, unspecified; N18.9 Chronic kidney disease, unspecified; M32.9 Systemic lupus erythematosus, unspecified; M06.9 Rheumatoid arthritis, unspecified; F17.210 Nicotine dependence, cigarettes, uncomplicated
CPT/HCPCS: 36415; 80053; 82803; 85025; 93005; 93010; 94640; 96365; 96366; 96375; 99285

== ENCOUNTER 2018-12-19 11:38 | Emergency (ER) ==
[2018-12-19 11:41] VITALS: BP 167/118; BMI 16.7
--- NOTE | 2018-12-19 12:05 | ED.PDOC ---
General ED Provider: Dr. SERGEY HERR Chief Complaint: Rash Stated Complaint: Rash upper extremities, back, chest; for 3 or 4 days - oozing clear - red and painful. Needs to get cleared up for a port placement. Time Seen by Physician: 12:02 Mode of Arrival: Walk-In Information Source: Patient Exam Limitations: No limitations Primary Care Provider: ALYSSA GREEN Nursing and Triage Documentation Reviewed and Agree: Yes Does patient meet sepsis criteria?: No (BP 146/97 on recheck and temp 97F; labs and CXR revuewed - no further eval) System Inflammatory Response Syndrome: Temp 101F or Greater (Temp on recheck WNL ; labs/CXR reviewed and no further septic eval indicated), Not Applicable ( temperature on recheck 97F) Sepsis Protocol: For patient's 13 years and over: Temp is 96.8 and below OR 101 and greater Pulse >90 BPM Resp >20/minute Acutely Altered Mental Status Are patient's symptoms suggestive of a new infection, such as: -Pneumonia -Skin, Soft Tissue -Endocarditis -UTI -Bone, Joint Infection -Implantable Device -Acute Abdominal Infection -Wound Infection -Meningitis -Blood Stream Catheter Infection -Unknown Review of Systems - Review Of Systems Constitutional: Reports: No symptoms Eyes: Reports: No symptoms Ears, Nose, Mouth, Throat: Reports: No symptoms Respiratory: Reports: No symptoms Skin: Reports: Rash All Other Systems: Reviewed and Negative Past Medical History - Past Medical History Previously Healthy: Yes Endocrine: Reports: Hypothyroid Cardiovascular: Reports: Hypertension, CHF Respiratory: Reports: COPD Hematological: Reports: None Gastrointestinal: Reports: None Genitourinary: Reports: CKD Neuro/Psych: Reports: None Musculoskeletal: Reports: Arthritis Cancer: Reports: None Last Menstrual Period: n/a Other Pertinent Past Medical History: Lupus, RA - Surgical History General Surgical History: Reports: Appendectomy, Cholecystectomy, Other (shunt to the right chest for dialysis.) - Family History Family History: Reports: Unknown - Social History Smoking Status: Current every day smoker Hx Substance Use: Yes (Not Currently) Alcohol Screening: None Physical Exam - Physical Exam Appearance: Well-appearing Ill-appearing: None Pain Distress: None Eyes: ANDREA, EOMI ENT: Oropharynx normal Neck: Supple Respiratory: Airway patent, Breath sounds clear, Respirations nonlabored Cardiovascular: RRR, Pulses normal Musculoskeletal: Normal strength, ROM intact Skin: Warm, Dry, Normal color Neurological: Sensation intact, Motor intact, Alert, Oriented Psychiatric: Affect appropriate, Mood appropriate Interpretation - Radiology Interpretation Radiology Interpretation By: Radiologist Radiology Results: No acute changes Exam Interpreted: CXR Critical Care Note - Critical Care Note Total Time (mins): 8 Course - Course Hematology/Chemistry: 12/19/18 12:25 12/19/18 12:25 Orders, Labs, Meds: Lab Review 12/19/18 12/19/18 12:25 12:25 WBC 6.79 RBC 4.28 Hgb 13.5 Hct 41.2 MCV 96.3 MCH 31.5 H MCHC 32.8 RDW Coeff of [place]enny 15.9 H Plt Count 217 Immature Gran % (Auto) 0.3 Neut % (Auto) 36.0 Lymph % (Auto) 46.7 [place] % (Auto) 13.1 H Eos % (Auto) 2.9 Baso % (Auto) 1.0 Immature Gran # (Auto) 0.0 Neut # (Auto) 2.4 Lymph # (Auto) 3.2 [place] # (Auto) 0.9 Eos # (Auto) 0.2 Baso # (Auto) 0.1 ESR 27 H Sodium 136.7 Potassium 3.52 Chloride 97.1 L Carbon Dioxide 32.3 H Anion Gap 10.82 BUN 21.9 H Creatinine 2.29 H Estimated GFR (MDRD) 23.00 BUN/Creatinine Ratio 9.56 Glucose 95.7 Calcium 8.84 Total Bilirubin 0.33 AST 56.8 H ALT 19.3 Alkaline Phosphatase 108.8 Total Protein 8.33 H Albumin 3.99 Globulin 4.34 Albumin/Globulin Ratio 0.91 Orders Category Date Time Status CBC W/ AUTO DIFF Stat LAB 12/19/18 12:25 Completed COMPREHENSIVE METABOLIC PANEL Stat LAB 12/19/18 12:25 Completed ESR Stat LAB 12/19/18 12:25 Completed CHEST, 2 VIEWS PA & LAT Stat RADS 12/19/18 12:07 Completed Vital Signs: Temp Pulse Resp BP Pulse Ox 12/19/18 13:15 97.8 F 12/19/18 11:38 101.5 F H 81 16 167/118 H 93 L Departure - Departure Time of Disposition: 13:15 Disposition: HOME SELF-CARE Discharge Problem: Rash and nonspecific skin eruption Instructions: Impetigo (ED) Condition: Good Pt referred to PMD for follow-up: Yes (Call for appointment) IPMP verified?: No (N/A) Additional Instructions: Take antibiotic; follow up with primary care if skin rash/infections not cleared up next week. Must accomplish prior to port placement. Prescriptions: Hydroxyzine HCl [Atarax] 25 mg PO TID #14 tablet Sulfamethoxazole/Trimethoprim [Bactrim Ds Tablet] 1 each PO BID #20 tablet Allergies/Adverse Reactions: Allergies codeine Allergy (Severe, Verified 12/19/18 11:41) nausea varenicline tartrate [From Chantix] Allergy (Severe, Verified 12/19/18 11:41) nightmares Pt to notify drugstore bevacizumab [From Avastin] Adverse Reaction (Verified 12/19/18 11:41) Home Medications: Ambulatory Orders Bumetanide 0.5 mg PO BID 11/02/18 Cholecalciferol (Vitamin D3) [Vitamin D3] 1,000 unit PO DAILY 11/02/18 Hydralazine HCl 10 mg PO Q8H 11/02/18 Aspirin [Aspirin Chewable] 81 mg PO DAILYWM 11/13/18 Carvedilol 12.5 mg PO BIDWM 11/13/18 Furosemide 40 mg PO DAILY 11/13/18 Albuterol Sulfate 0.083% Neb [Albuterol 0.083% Neb] 1 vial NEB RTQ4H 12/19/18 Hydroxyzine HCl [Atarax] 25 mg PO TID #14 tablet 12/19/18 Sulfamethoxazole/Trimethoprim [Bactrim Ds Tablet] 1 each PO BID #20 tablet 12/19
--- NOTE | 2018-12-19 12:25 | DI ---
EXAM: Chest two views HISTORY: Fever. FINDINGS: Compared to as 11/02/2018. Cardiomegaly is again noted. Multilumen venous access cathete r is stable ending over the cavoatrial junction. No consolidated pneumonia is seen. There is no vas cular congestion, pleural fluid or pneumothorax. IMPRESSION: 1. No acute process identified.
[2018-12-19 13:15] VITALS: TEMP 97.8
== END 2018-12-19 13:33 | disposition home or self-care (01) ==
LOC: ED 11:38
DX: R21 Rash and other nonspecific skin eruption (principal); R50.9 Fever, unspecified; I10 Essential (primary) hypertension; N18.9 Chronic kidney disease, unspecified; E03.9 Hypothyroidism, unspecified; M32.9 Systemic lupus erythematosus, unspecified; M06.9 Rheumatoid arthritis, unspecified; Z79.899 Other long term (current) drug therapy; F17.210 Nicotine dependence, cigarettes, uncomplicated
CPT/HCPCS: 36415; 80053; 85025; 85651; 99283